=== PATIENT | female | born 1955 | race African-American/Black ===

== ENCOUNTER 2024-02-26 22:25 | Emergency (ER) | payer MEDICARE | END 2024-02-27 01:03 | disposition home or self-care (01) | LOC: ERS 22:25 | DX: M79.89 Other specified soft tissue disorders (principal); I10 Essential (primary) hypertension ==

== ENCOUNTER 2025-02-17 14:17 | Emergency (ER) | payer MEDICARE, OTHER ==
[2025-02-17 15:08] LABS: #Basophils 0.07 10x3/uL (0.0-0.2); #Eosinophils 0.18 10x3/uL (0.0-0.7); #Monocytes 0.71 10x3/uL (0.11-0.59); #Neutrophils 4.24 10x3/uL (1.40-6.50); %Basophils 1.0 % (0.0-1.0); %Eosinophils 2.6 % (0.0-10.0); %Lymphocytes 25.6 % (21.0-51.0); %Monocytes 10.1 % (0.0-10.0); %Neutrophils 60.6 % (42.0-75.0); Hematocrit 37.0 % (36.0-47.0); Hemoglobin 12.5 g/dL (12.0-16.0); Mean Corpuscular Hemoglobin 29.1 pg (27.0-31.0); Mean Corpuscular Volume 86.2 fL (78.0-98.0); Platelet Count 188 10x3/uL (130-400); Red Blood Cell (RBC) Count 4.29 mill/uL (4.20-5.40); White Blood Cell (WBC) Count 7.00 10x3/uL (4.8-10.8)
[2025-02-17 15:35] LABS: ALT (SGPT) 7 U/L (Less than 34); AST (SGOT) 17 U/L (11-34); Albumin 3.9 g/dL (3.1-4.5); Alkaline Phosphatase 132 U/L (40-110); Anion Gap 14 mmol/L (10-20); BUN (Urea Nitrogen) 8 mg/dL (9.8-20.1); Bilirubin, Total 0.8 mg/dL (0.3-1.2); Calc. Creatinine Clearance 0 mL/min (70-130); Calcium 9.6 mg/dL (7.8-10.44); Carbon Dioxide 28 mmol/L (23-31); Chloride 102 mmol/L (98-107); Globulin 3.7 g/dL (2.4-3.5); Glucose 108 mg/dL (80-115); Potassium 3.6 mmol/L (3.5-5.1); Sodium 140 mmol/L (136-145)
[2025-02-17 16:30] LABS: Magnesium 1.5 mg/dL (1.6-2.6)
[2025-02-17] MEDS ORDERED: Magnesium 2 GM/50 ML BAG (IN WATER) ONE (17:05)
[2025-02-17] MEDS ORDERED: Acetaminophen 500 MG TAB ONE (18:16)
== END 2025-02-17 18:43 | disposition home or self-care (01) ==
LOC: ERS 14:17
DX: I73.9 Peripheral vascular disease, unspecified (principal); E83.42 Hypomagnesemia; R20.2 Paresthesia of skin; R25.2 Cramp and spasm; R29.702 NIHSS score 2; I25.10 Atherosclerotic heart disease of native coronary artery without angina pectoris; E78.5 Hyperlipidemia, unspecified; I10 Essential (primary) hypertension; I25.2 Old myocardial infarction; J45.909 Unspecified asthma, uncomplicated; Z85.6 Personal history of leukemia; Z86.73 Personal history of transient ischemic attack (TIA), and cerebral infarction without residual deficits
CPT/HCPCS: 80053; 83735; 85025; 93005; 96365; 99284; J3475

== ENCOUNTER 2025-02-23 08:11 | Outpatient (CLI) | payer MEDICARE, OTHER | END 2025-02-23 08:12 | disposition home or self-care (01) | LOC: BICMAMMO 08:11 | PROVIDERS: ATTEND Internal Medicine | DX: C92.41 Acute promyelocytic leukemia, in remission (principal); Z79.818 Long term (current) use of other agents affecting estrogen receptors and estrogen levels; M85.859 Other specified disorders of bone density and structure, unspecified thigh | CPT/HCPCS: 77080 ==